=== PATIENT | female | born 1995 | race Two or more races ===

== ENCOUNTER 2016-07-12 22:08 | Emergency (ER) | payer BC ==
--- NOTE | ~2016-07-12 | ER ---
PATIENT'S NAME: MIGDALIA BOYLE [facility] AGE: 21 Y [address] ROOM: [place] [id number] LOCATION: [facility] ADMIT DATE: 07/12/2016 ER/Outpatient Report DISCHARGE DATE: 07/13/2016 FAMILY PHYSICIAN: America Andrade MD ATTENDING PHYSICIAN: Mook Meek Time of Arrival: 2208 hours. Time of Evaluation: 2240 hours. HISTORY OF PRESENT ILLNESS: This is a 21-year-old female with history of Cazares syndrome and with complaint of painful swollen joints, face swelling, generalized weakness, fatigue and nausea for the past 3-4 weeks. She states that she has had similar problems for the past several months. They had been worse over the past several weeks. PAST MEDICAL HISTORY: Significant for mosaic Cazares syndrome. CURRENT MEDICATIONS: See list. REVIEW OF SYSTEMS: She denies any other recent illnesses. SOCIAL HISTORY: She is a nonsmoker. PHYSICAL EXAMINATION: GENERAL: Alert, cooperative female, in no acute distress. VITAL SIGNS: Stable. SKIN: Warm and dry. Color is normal. HEENT: Head, ears, eyes, nose, and throat were normal. NECK: Supple. HEART: Had a regular rate and rhythm without murmur. LUNGS: Clear. Breath sounds are equal. ABDOMEN: Soft. EXTREMITIES: Normal. NEUROLOGIC: Normal. LABORATORY DATA: CBC was unremarkable. Sedimentation rate was elevated at 42 and TSH was normal at 3.5. ASSESSMENT: 1. Diffuse polyarthritis. PATIENT'S NAME: MIGDALIA BOYLE [facility] AGE: 21 Y [address] ROOM: [place] [id number] LOCATION: [facility] ADMIT DATE: 07/12/2016 ER/Outpatient Report DISCHARGE DATE: 07/13/2016 FAMILY PHYSICIAN: America Andrade MD ATTENDING PHYSICIAN: Mook Meek 2. Cazares syndrome. PLAN: She is instructed to follow up with her plaster maker within the next week. Continue ibuprofen 800 mg 3 times a day. MOOK MEEK MD JDB/kathiel /[id number] d: 07/13/16 0738 t: 08/10/16 0955, OUTPATIENT REPORT
[2016-07-12 22:53] LABS: BASOPHIL % 0.2 %; EOSINOPHIL # 0.2 K/uL (0.0-0.5); HEMATOCRIT 37.3 % (33.0-46.0); HEMOGLOBIN 12.2 g/dL (11.0-15.0); IMMATURE GRANULOCYTE % 0.3 %; LYMPHOCYTE # 2.6 K/uL (0.8-4.0); LYMPHOCYTE % 27.1 %; MCH 27.5 pg (27.0-34.0); MCHC 32.7 gm/dL (32.0-36.5); MONOCYTE # 0.5 K/uL (0.0-1.0); MONOCYTE % 5.7 %; MPV 10.9 fl (9.4-12.4); NEUTROPHIL # (ANC) 6.2 K/uL (1.8-7.8); NEUTROPHIL % 64.7 %; NRBC % 0 /100WBC (0-0.00); PLATELET COUNT 294 K/uL (150-450); RBC 4.44 M/uL (3.50-5.00); RDW-CV 13.9 % (11.9-14.6); WBC 9.5 K/uL (4.0-11.0)
[2016-07-12 23:12] LABS: ALBUMIN 3.6 gm/dL (3.5-5.0); ALK PHOS 155 IU/L (33-138); ALT 75 IU/L (12-78); ANION GAP 14.5 (10.0-19.0); AST 35 IU/L (10-40); BLOOD UREA NITROGEN 15 mg/dL (6-24); CALCIUM 8.8 mg/dL (8.5-10.5); CHLORIDE 105 mMol/L (96-110); CO2 24 mMol/L (22-32); CREATININE 0.7 mg/dL (0.5-1.1); ESTIMATED GFR (MDRD EQUATION) > 60; POTASSIUM 3.5 mMol/L (3.7-5.1); SODIUM 140 mMol/L (135-145); TOTAL BILIRUBIN 0.2 mg/dL (0.0-1.5); TOTAL PROTEIN 7.6 g/dL (6.0-8.4)
== END 2016-07-13 00:34 | disposition disaster alternative care site (69) ==
LOC: GMED 22:08
PROVIDERS: Emergency Medicine
DX: M13.0 Polyarthritis, unspecified (principal); Q96.9 Turner's syndrome, unspecified
CPT/HCPCS: J1885